=== PATIENT | female | born 1990 | race Caucasian/White ===

== ENCOUNTER 2016-12-12 06:28 | Inpatient (IN) | payer MEDICAID ==
[~2016-12-12] VITALS: Ht 154.9 cm; Wt 80.5 kg
--- NOTE | ~2016-12-12 | OR ---
PATIENT'S NAME: JAMEL MASSEY [facility] AGE: 26 Y [address] ROOM: [place] [address] LOCATION: [facility] ADMIT DATE: 12/12/2016 OR/Procedure Report DISCHARGE DATE: FAMILY PHYSICIAN: PHYSICIAN, UNKNOWN ATTENDING PHYSICIAN: RYANNE NJ SURGEON: Ryanne Nj MD COMMERCIAL LEASING MANAGER: None. DATE OF PROCEDURE: 12/12/2016 PREOPERATIVE DIAGNOSIS: A 37 and 1/7th weeks intrauterine and active labor with a precipitous delivery, 1/2 ppd tobacco abuse. POSTOPERATIVE DIAGNOSIS: A 37 and 1/7th weeks intrauterine and active labor with a precipitous delivery with delivery of a viable male infant at 0626 hours, weighing 6 pounds 8 ounces with score of 8 at one minute and 9 at five minutes. PROCEDURE: A precipitous vaginal delivery with delivery of the placenta. ANESTHESIA: None. ESTIMATED BLOOD LOSS: 200 mL. INDICATIONS: This is a 26-year-old, G3, P2, who presented at 37 and 1/7th weeks' gestation with precipitous labor. She had an EDC of 01/01/2017 presumably by last menstrual period. course was only complicated by previous section with previous successful . The patient also is a smoker, half pack per day. lab data was unavailable except for previously noted blood type of A-positive. There was no group B strep test that was obtained. The patient actually was on her way to [place], where she previously had a vaginal after . When they got just past [place], the patient decided that they would not make it there, and they came to the [facility]. DESCRIPTION OF PROCEDURE: The patient walked into the emergency department and had a precipitous delivery after pushing once on the floor of the emergency department waiting room. The nursing staff from obstetrics was in attendance and clamped the cord x2 and cut the cord. The baby was subsequently taken to the NICU for further evaluation and management. It was noted prior to that the baby did have no nuchal cord, but had spontaneously reduced. The mother was subsequently brought to the labor and delivery floor. There, she had delivery of her placenta at 0707 hours via [place]. The patient had minimal blood loss. The vagina was intact, as was the perineum. Cervix was explored and was found to also be intact. There was no significant bleeding. About 20 units of Pitocin was placed in the bag of normal saline and was subsequently administered to the patient after the delivery of the placenta. No repairs were needed. Placenta was examined and found to have 3 PATIENT'S NAME: JAMEL MASSEY [facility] AGE: 26 Y [address] ROOM: [place] [address] LOCATION: [facility] ADMIT DATE: 12/12/2016 OR/Procedure Report DISCHARGE DATE: FAMILY PHYSICIAN: PHYSICIAN, UNKNOWN ATTENDING PHYSICIAN: RYANNE NJ blood vessels, but the cord was clotted off at that time, so no cord blood was drawn. The cord was sent for drug screen. The baby was noted to have good cry at the time of delivery. At the end of the procedure, both mom and baby were doing well. RYANNE NJ MD BAB/modl /[id number] d: 12/12/1650 t: 12/16/16818, OPERATIVE SUMMARY
--- NOTE | ~2016-12-12 | ER ---
PATIENT'S NAME: JAMEL MASSEY [facility] AGE: 26 Y [address] ROOM: [address] [address] LOCATION: [facility] ADMIT DATE: 12/12/2016 ER/Outpatient Report DISCHARGE DATE: FAMILY PHYSICIAN: PHYSICIAN, UNKNOWN ATTENDING PHYSICIAN: RYANNE ALMONTE Event: Precipitous Delivery. I was called to the waiting room by RN for precipitous delivery. Upon walking out into the lobby, I found the mother lying on the floor supine, awake, and talking with the RN holding a baby with a cord still attached. Baby did appear to have good tone upon my initial inspection with some acral cyanosis and good cry. Mom did not have any bleeding appreciated. Fluid appreared clear, no meconium appreciated. Nucal cord x1 per RN, reduced by RN. Ultimately, we were able to obtain the precipitous delivery pack, clamp cord x2, and hand father cut the cord and dried and stimulated baby. OB RN did evaluate baby's lung sounds and baby had brisk heart rate. Color continued to improve. Bulb suctioning was used on the baby. Mom was able to stand up, which she was placed in a cart and subsequently rolled up to OB. OB/Peds RN took baby physically to floor with father accompanying. This is the extent of available history on this patient other than we think perhaps her physician was in [place] and they are on the way for delivery, however, she was not going to quite make it and they stopped here. The patient was ultimately taken to the OB floor in no acute pain or distress without further issues. MD JANESSA PADRON/ariel /[id number] d: 12/12/16717 t: 12/12/16914, OUTPATIENT REPORT
[2016-12-12 07:33] LABS: BASOPHIL % 0.1 %; EOSINOPHIL % 0.3 %; HEMATOCRIT 40.6 % (33.0-46.0); HEMOGLOBIN 13.8 g/dL (11.0-15.0); IMMATURE GRANULOCYTE # 0.2 K/uL (0.0-0.3); IMMATURE GRANULOCYTE % 1.5 %; LYMPHOCYTE # 2.9 K/uL (0.8-4.0); LYMPHOCYTE % 20.8 %; MCH 31.4 pg (27.0-34.0); MCV 92.3 fl (83.0-98.0); MONOCYTE # 0.8 K/uL (0.0-1.0); MONOCYTE % 5.5 %; MPV 10.6 fl (9.4-12.4); NEUTROPHIL # (ANC) 9.9 K/uL (1.8-7.8); NEUTROPHIL % 71.8 %; NRBC % 0 /100WBC (0-0.00); PLATELET COUNT 236 K/uL (150-450); RDW-CV 13.2 % (11.9-14.6); WBC 13.8 K/uL (4.0-11.0)
[2016-12-12] MEDS ORDERED: PRENATAL 1+1)(P1 TAB PO (08:58)
[2016-12-12 10:45] LABS: BARBITURATE NEGATIVE (NEGATIVE); COCAINE NEGATIVE (NEGATIVE); OPIATES NEGATIVE (NEGATIVE)
[2016-12-12 11:01] LABS: AMPHETAMINE NEGATIVE (NEGATIVE)
[2016-12-13 05:09] LABS: BASOPHIL % 0.2 %; EOSINOPHIL # 0.1 K/uL (0.0-0.5); EOSINOPHIL % 1.2 %; HEMATOCRIT 38.1 % (33.0-46.0); HEMOGLOBIN 12.8 g/dL (11.0-15.0); IMMATURE GRANULOCYTE # 0.1 K/uL (0.0-0.3); IMMATURE GRANULOCYTE % 0.4 %; LYMPHOCYTE # 3.8 K/uL (0.8-4.0); LYMPHOCYTE % 31.9 %; MCH 31.4 pg (27.0-34.0); MCHC 33.6 gm/dL (32.0-36.5); MCV 93.6 fl (83.0-98.0); MONOCYTE # 0.8 K/uL (0.0-1.0); MONOCYTE % 6.7 %; MPV 10.7 fl (9.4-12.4); NEUTROPHIL # (ANC) 7.2 K/uL (1.8-7.8); NEUTROPHIL % 59.6 %; NRBC % 0 /100WBC (0-0.00); PLATELET COUNT 238 K/uL (150-450); RBC 4.07 M/uL (3.50-5.00); RDW-CV 13.4 % (11.9-14.6)
--- NOTE | 2016-12-13 05:29 | NUR ---
Last VS: T:97.9 P:64 R: 14 BP: 115/61 Pain ratin. Last pain med: Tylenol Medicated at: 0310 Effective: Yes Breasts: SOFT, Nipples: TENDER INTACT Fundus: FIRM, MIDLINE, 1 BELOW Lochia: RUBRA, SMALL Epis/Perineum: INTACT, TENDER , Voiding well: VOIDS wnl Significant event: VSS, INDEPENDENT WITH CARES.
--- NOTE | 2016-12-14 04:50 | NUR ---
VSS, fundus firm, midline, scant-small flow, no pain
[2016-12-14] MEDS ORDERED: SURFAK240 MG PO (09:57)
[2016-12-14] MEDS ORDERED: ACETAMINOPHEN325 MG PO (09:58)
[2016-12-14] MEDS ORDERED: LANSINOH7 GM TOP (09:58)
[2016-12-14] MEDS ORDERED: MOTRIN800 MG PO (10:01)
--- NOTE | 2016-12-14 13:49 | NUR ---
Consult to meet with mom today. Met with mom at bedside. Introduced myself and the role of the care management department. Mom denies having any needs at this time. She is connected with the [facility] clinic in the [facility]. She has a 2 and 4 year old at home. 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 Her is the primary manager primary care for the three children. Instructed her to contact Medicaid and inform them of baby Yared's . Family has all necessary items for baby. Will continue to follow and offer supports as needed.
== END 2016-12-14 15:20 | disposition disaster alternative care site (69) | DRG 775 ==
LOC: GOBS 06:28
PROVIDERS: ADMIT Family Medicine
PROC: 10E0XZZ Delivery of Products of Conception, External Approach (ICD-10-PCS; principal; 2016-12-12)
DX: O62.3 Precipitate labor (principal); F17.210 Nicotine dependence, cigarettes, uncomplicated; O34.211 Maternal care for low transverse scar from previous cesarean delivery; N85.8 Other specified noninflammatory disorders of uterus; O99.334 Smoking (tobacco) complicating childbirth; Z3A.37 37 weeks gestation of pregnancy; Z37.0 Single live birth
CPT/HCPCS: J2590